=== PATIENT | male | born 1960 | race Caucasian/White ===

== ENCOUNTER 2017-06-24 13:42 | Inpatient (IN) | payer MEDICARE ==
[~2017-06-24] VITALS: Ht 172.7 cm; Wt 95.3 kg
[2017-06-24 14:58] LABS: BASOPHILS 0.1 % (0-2); EOSINOPHILS 0.1 % (0-7); HEMATOCRIT 40.6 % (42.0-54.0); HEMOGLOBIN 14.7 g/dL (13.5-17.5); IMMATURE GRANULOCYTES 0.4 % (0-5); LYMPHOCYTES 4.3 % (15-50); MCH 33.5 pg (26.0-34.0); MCHC 36.2 g/dL (31.0-37.0); MCV 92.5 fL (80.0-100.0); MEAN PLATELET VOLUME 9.4 fL (7.4-10.4); MONOCYTES 9.4 % (2-11); NEUTROPHILS 85.7 % (40-80); PLATELET COUNT 181 10x3/uL (130-400); RBC 4.39 10x6/uL (4.20-6.10); RDW 12.2 % (11.5-14.5); WBC 16.6 10x3/uL (4.8-10.8)
[2017-06-24 15:12] LABS: ANION GAP 16.3 mmol/L (8-16); BILIRUBIN - TOTAL 0.72 mg/dL (0.2-1.3); CALCIUM 8.8 mg/dL (8.5-10.1); CARBON DIOXIDE 22.8 mmol/L (21.0-32.0); CREATININE - SERUM 1.1 mg/dL (0.6-1.3); POTASSIUM - SERUM 4.1 mmol/L (3.5-5.1); PROTEIN - SERUM 7.9 g/dL (6.4-8.2)
[2017-06-24 15:26] LABS: APPEARANCE CLEAR (CLEAR); BILIRUBIN NEGATIVE (NEGATIVE); COLOR YELLOW (YELLOW); GLUCOSE NEGATIVE (NEGATIVE); KETONE NEGATIVE (NEGATIVE); NITRITE NEGATIVE (NEGATIVE); PROTEIN NEGATIVE (NEGATIVE); SPECIFIC GRAVITY 1.015 (1.005-1.020); UROBILINOGEN NORMAL (NORMAL)
[2017-06-24 15:46] LABS: AMYLASE - SERUM 43 U/L (25-115); LIPASE 86 U/L (73-393)
[2017-06-24 20:49] VITALS: BP 150/80
[2017-06-25 00:34] VITALS: BP 150/80; BMI 32.0
[2017-06-25] MEDS ORDERED: NORVASC10 MG PO (00:47)
[2017-06-25] MEDS ORDERED: ZESTRIL40 MG PO (00:47)
[2017-06-25] MEDS ORDERED: TERAZOSIN HCL2 MG PO (00:47)
[2017-06-25 04:00] VITALS: BP 109/66
[2017-06-25 05:48] LABS: BASOPHILS 0.1 % (0-2); EOSINOPHILS 0.3 % (0-7); HEMATOCRIT 36.2 % (42.0-54.0); HEMOGLOBIN 12.9 g/dL (13.5-17.5); IMMATURE GRANULOCYTES 0.2 % (0-5); LYMPHOCYTES 18.3 % (15-50); MCHC 35.6 g/dL (31.0-37.0); MCV 92.6 fL (80.0-100.0); MEAN PLATELET VOLUME 9.5 fL (7.4-10.4); MONOCYTES 11.3 % (2-11); NEUTROPHILS 69.8 % (40-80); PLATELET COUNT 169 10x3/uL (130-400); RBC 3.91 10x6/uL (4.20-6.10); RDW 12.4 % (11.5-14.5)
[2017-06-25 05:53] LABS: WBC 10.3 10x3/uL (4.8-10.8)
[2017-06-25 06:10] LABS: APTT 27.7 SECONDS (22.8-39.4); INR 1.05 (0.85-1.17); PROTIME 13.3 SECONDS (11.6-15.0)
[2017-06-25 06:23] LABS: ALBUMIN 3.2 g/dL (3.4-5.0); ALKALINE PHOSPHATASE 53 U/L (46-116); CALCIUM 8.6 mg/dL (8.5-10.1); CARBON DIOXIDE 25.3 mmol/L (21.0-32.0); CHLORIDE - SERUM 105 mmol/L (98-107); PROTEIN - SERUM 6.7 g/dL (6.4-8.2); SODIUM 140 mmol/L (136-145); eGFR NON AFRICAN AMERICAN 82 mL/min (90-120)
[2017-06-25 06:29] LABS: ALT (SGPT) 70 U/L (10-68); CALC OSMOLALITY 277 mosm/kg (275-300); GLUCOSE 97 mg/dL (74-106); UREA NITROGEN 10 mg/dL (7-18)
[2017-06-25 07:49] VITALS: BP 128/78
[2017-06-25 12:55] VITALS: BP 112/71
[2017-06-25 13:46] LABS: % SATURATION 17 % (15-55); IRON 54 ug/dl (35-150); TOTAL IRON BIND CAPACITY 314 ug/dl (260-445); UNSAT IRON BIND CAPACITY 260 ug/dl (150-375)
[2017-06-25 13:54] VITALS: Ht 172.7 cm; Wt 95.3 kg
[2017-06-25 16:27] VITALS: BP 148/82
[2017-06-25 22:06] VITALS: BP 167/90
[2017-06-26 05:03] VITALS: BP 139/91
[2017-06-26 06:29] LABS: BASOPHILS 0.1 % (0-2); EOSINOPHILS 0.4 % (0-7); HEMATOCRIT 36.4 % (42.0-54.0); HEMOGLOBIN 12.7 g/dL (13.5-17.5); IMMATURE GRANULOCYTES 0.3 % (0-5); LYMPHOCYTES 17.9 % (15-50); MCH 32.8 pg (26.0-34.0); MCHC 34.9 g/dL (31.0-37.0); MCV 94.1 fL (80.0-100.0); MEAN PLATELET VOLUME 9.3 fL (7.4-10.4); MONOCYTES 12.4 % (2-11); NEUTROPHILS 68.9 % (40-80); PLATELET COUNT 148 10x3/uL (130-400); RBC 3.87 10x6/uL (4.20-6.10); RDW 12.5 % (11.5-14.5); WBC 9.2 10x3/uL (4.8-10.8)
[2017-06-26 06:41] LABS: CALCIUM 8.5 mg/dL (8.5-10.1); CARBON DIOXIDE 28.5 mmol/L (21.0-32.0); CREATININE - SERUM 1.1 mg/dL (0.6-1.3); POTASSIUM - SERUM 4.5 mmol/L (3.5-5.1)
[2017-06-26 08:02] VITALS: BP 161/96
[2017-06-26 09:17] LABS: FOLATE (FOLIC ACID) - SERUM 16.3 ng/mL (>3.0)
[2017-06-26 12:00] VITALS: BP 149/88
[2017-06-26 16:35] VITALS: BP 138/86
[2017-06-26 20:30] VITALS: BP 146/77
[2017-06-27 00:52] VITALS: BP 148/78
[2017-06-27 03:58] VITALS: BP 133/77
[2017-06-27 04:36] LABS: BASOPHILS 0.1 % (0-2); EOSINOPHILS 1.8 % (0-7); HEMATOCRIT 38.9 % (42.0-54.0); HEMOGLOBIN 13.7 g/dL (13.5-17.5); IMMATURE GRANULOCYTES 0.3 % (0-5); LYMPHOCYTES 20.2 % (15-50); MCH 32.8 pg (26.0-34.0); MCHC 35.2 g/dL (31.0-37.0); MCV 93.1 fL (80.0-100.0); MEAN PLATELET VOLUME 9.4 fL (7.4-10.4); MONOCYTES 13.2 % (2-11); NEUTROPHILS 64.4 % (40-80); PLATELET COUNT 160 10x3/uL (130-400); RBC 4.18 10x6/uL (4.20-6.10); RDW 12.2 % (11.5-14.5); WBC 7.9 10x3/uL (4.8-10.8)
[2017-06-27 04:49] LABS: ANION GAP 12.6 mmol/L (8-16); CALCIUM 9.2 mg/dL (8.5-10.1); CARBON DIOXIDE 27.3 mmol/L (21.0-32.0); CREATININE - SERUM 1.1 mg/dL (0.6-1.3); POTASSIUM - SERUM 3.9 mmol/L (3.5-5.1)
[2017-06-27 08:29] VITALS: BP 153/88
[2017-06-27 12:51] VITALS: BP 147/79
[2017-06-27 15:51] VITALS: BP 138/90
[2017-06-27 20:38] VITALS: BP 136/76
[2017-06-28 04:38] VITALS: BP 144/82
[2017-06-28 05:14] LABS: BASOPHILS 0.3 % (0-2); EOSINOPHILS 2.9 % (0-7); HEMATOCRIT 36.9 % (42.0-54.0); HEMOGLOBIN 13.2 g/dL (13.5-17.5); IMMATURE GRANULOCYTES 0.4 % (0-5); LYMPHOCYTES 21.5 % (15-50); MCHC 35.8 g/dL (31.0-37.0); MCV 92.3 fL (80.0-100.0); MEAN PLATELET VOLUME 9.2 fL (7.4-10.4); MONOCYTES 12.5 % (2-11); NEUTROPHILS 62.4 % (40-80); PLATELET COUNT 174 10x3/uL (130-400); RDW 12.1 % (11.5-14.5)
[2017-06-28 05:36] LABS: ANION GAP 15.3 mmol/L (8-16); CALCIUM 8.9 mg/dL (8.5-10.1); CARBON DIOXIDE 23.7 mmol/L (21.0-32.0); CREATININE - SERUM 1.1 mg/dL (0.6-1.3)
[2017-06-28 08:09] VITALS: BP 142/79
[2017-06-28 12:07] VITALS: BP 146/83
[2017-06-28 16:01] VITALS: BP 149/90
[2017-06-28] MEDS ORDERED: LEVAQUIN500 MG PO (16:11)
[2017-06-28] MEDS ORDERED: FLAGYL500 MG PO (16:12)
[2017-06-28] MEDS ORDERED: NORCO 7.5/325 T1 TA1 PO (16:14)
== END 2017-06-28 17:40 | disposition home or self-care (01) | DRG 392 ==
LOC: D.ER 13:42 → D.EDHOLD 19:19 → D.MS 19:19 → D.SDCHOLD 06-25 08:49 → D.MS 06-25 08:50
PROVIDERS: Family Medicine; Internal Medicine Nephrology; Physician Assistant; Surgery
DX: K57.20 Diverticulitis of large intestine with perforation and abscess without bleeding (principal); F10.20 Alcohol dependence, uncomplicated; B19.20 Unspecified viral hepatitis C without hepatic coma; J43.9 Emphysema, unspecified; D64.9 Anemia, unspecified; I10 Essential (primary) hypertension; F32.9 Major depressive disorder, single episode, unspecified; F41.9 Anxiety disorder, unspecified

== ENCOUNTER → 2018-01-02 16:06 | Outpatient (CLI) | payer MEDICARE ==
[2017-06-25 13:54] VITALS: BMI 31.9
[~2018-01-02 16:06] MED LIST: FLAGYL500 MG PO; LEVAQUIN500 MG PO; NORCO 7.5/325 T1 TA1 PO; NORVASC10 MG PO; OXYCODONE-APAP1 TAB PO; TERAZOSIN HCL2 MG PO; VENTOLIN HFA18 GM INH; ZESTRIL40 MG PO
== END | disposition home or self-care (01) ==
LOC: D.LABREF 16:06
DX: M19.011 Primary osteoarthritis, right shoulder (principal); Z11.8 Encounter for screening for other infectious and parasitic diseases

== ENCOUNTER 2018-01-23 08:00 | Outpatient (CLI) | payer MEDICARE ==
[~2018-01-23 08:00] MED LIST changes: -OXYCODONE-APAP1 TAB PO; -VENTOLIN HFA18 GM INH
[2018-01-28 10:45] VITALS: BMI 28.7
== END 2018-01-23 08:01 | disposition home or self-care (01) ==
LOC: D.OPS 08:00
DX: M19.011 Primary osteoarthritis, right shoulder (principal); Z01.810 Encounter for preprocedural cardiovascular examination; Z01.811 Encounter for preprocedural respiratory examination; Z01.812 Encounter for preprocedural laboratory examination; Z53.9 Procedure and treatment not carried out, unspecified reason

== ENCOUNTER 2018-01-27 08:30 | Inpatient (IN) | payer MEDICARE ==
[2018-01-23 13:36] LABS: HEMATOCRIT 40.2 % (42.0-54.0); HEMOGLOBIN 14.6 g/dL (13.5-17.5); MCH 34.4 pg (26.0-34.0); MCHC 36.3 g/dL (31.0-37.0); MCV 94.8 fL (80.0-100.0); MEAN PLATELET VOLUME 9.4 fL (7.4-10.4); RBC 4.24 10x6/uL (4.20-6.10); RDW 12.4 % (11.5-14.5); WBC 7.2 10x3/uL (4.8-10.8)
[2018-01-23 13:53] LABS: APTT 22.5 SECONDS (22.8-39.4); INR 0.93 (0.85-1.17); PROTIME 12.1 SECONDS (11.6-15.0)
[2018-01-23 13:54] LABS: ALBUMIN 4.1 g/dL (3.4-5.0); ALKALINE PHOSPHATASE 53 U/L (46-116); ALT (SGPT) 61 U/L (10-68); BILIRUBIN - TOTAL 0.75 mg/dL (0.2-1.3); CALC OSMOLALITY 276 mosm/kg (275-300); CALCIUM 9.1 mg/dL (8.5-10.1); CARBON DIOXIDE 27.2 mmol/L (21.0-32.0); CHLORIDE - SERUM 103 mmol/L (98-107); CREATININE - SERUM 0.9 mg/dL (0.6-1.3); GLUCOSE 104 mg/dL (74-106); POTASSIUM - SERUM 4.7 mmol/L (3.5-5.1); PROTEIN - SERUM 7.3 g/dL (6.4-8.2); SODIUM 139 mmol/L (136-145); UREA NITROGEN 9 mg/dL (7-18); eGFR NON AFRICAN AMERICAN > 90 mL/min (90-120)
[~2018-01-27] VITALS: Ht 172.7 cm; Wt 85.7 kg
--- NOTE | ~2018-01-27 | MORECARE ---
CASE MANAGEMENT DISCHARGE SUMMARY PATIENT: REZA ENGLE UNIT: [id number] ADM DATE: 01/27/18 AGE: 57 : 58 SEX: M ROOM/BED: D.2209 AUTHOR: PATRICIA,DOC PHYSICIAN: REFERRING PHYSICIAN: MANSI GARCIA MD DATE OF SERVICE: 01/28/18 Discharge Plan Patient Name: REZA ENGLE Facility: [facility]:[place] : 1960 Planned Disposition: Home Anticipated Discharge Date: Discharge Date: Expected LOS: Initial Reviewer: [email or web address] Initial Review Date: 01/27/2018 Generated: 01/28/18 1:42 pm Comments DCP- Discharge Planning Updated by [email or web address]: Angela Torres on 01/28/18 11:[address] Patient Name: REZA ENGLE Admission Status: Elective Accout number: [id number] Admission Date: 01-27-2018 : 1960 Admission Diagnosis: Attending: MANSI GARCIA Current LOS: 1 Anticipated DC Date: Planned Disposition: Home Primary Insurance: [facility] [employer] Discharge Planning Comments: CM met with patient and to assess discharge planning needs. Patient stated that he is independent with his care at home. His will be the one to drive him home and his daughter will be the one staying with him while his is at work. Patient denies any DME / HH/ community resources at this time. CM will continue to follow and assist with DC planning as needed. Patient is requesting to be discharged today Criminalist Technician: Angela Torres DCPIA - Discharge Planning Initial Assessment Updated by [email or web address]: Angela Torres on 01/28/18 12:37 pm * Is the patient Alert and Oriented? Yes * How many steps to enter\exit or inside your home? * PCP [facility]ONTEMAYOR IN [facility] * Pharmacy [facility] [address] * Preadmission Environment Home with Family * ADLs Independent * Equipment None * List name and contact numbers for known caregivers / representatives who currently or will assist patient after discharge: [phone] () [phone] * Verbal permission to speak to the caregivers and representatives has been obtained from the patient. Yes * Community resources currently utilized None * Additional services required to return to the preadmission environment? No * Can the patient safely return to the preadmission environment? Yes * Has this patient been hospitalized within the prior 30 days at any hospital? No Patient Name: REZA ENGLE Page [phone] at 1242 All edits/amendments must be made on the electronic document DICTATION DATE: 01/28/181241 [employer] SUPERVISOR: BISHNU 01/28/18 1242 RPT#: [id number] DC DATE: STATUS: ADM IN [facility] [address] [place] [address] END OF REPORT
--- NOTE | ~2018-01-27 | OP ---
PATIENT NAME: REZA ENGLE MEDICAL RECORD: [id number] :58 LOCATION:D.MS [id number] ADMISSION DATE:01/27/18 SURGEON: MANSI GARCIA MD DATE OF OPERATION: 01/27/2018 PREOPERATIVE DIAGNOSIS: Severe arthritis of the right shoulder. POSTOPERATIVE DIAGNOSIS: Severe arthritis of the right shoulder. PROCEDURE: Right total shoulder arthroplasty. SURGEON: Mansi Garcia MD ANESTHESIA: General. INTRAOPERATIVE COMPLICATIONS: None. SUMMARY OF PATHOLOGIC FINDINGS: Extremely bad osteoarthritis with essentially square on square at the glenohumeral joint. IMPLANTS USED: Ar[employer] total shoulder system with a size #12 stem, size 54 x 21 humeral head, and a size large Univers VaultLock cemented glenoid. OPERATIVE SUMMARY IN DETAIL: After obtaining the appropriate preoperative orthopedic surgery consent as well as anesthetic consultation, evaluation, and clearance, the patient was brought to the operating room and placed on the operating table in the supine position. After general laryngeal mask was administered, the patient was placed in the beachchair position. All pressure points were well padded. Right upper extremity and shoulder were then prepped and draped in routine sterile fashion. Arm was held in Trimano arm holding device. Deltopectoral incision was taken down. Cephalic vein was found and protected. Deltoid was gently retracted laterally using the Nobles retractor. Conjoined tendon was gently retracted medially. The subscapularis was taken in a peel down fashion from the shoulder. The glenohumeral joint was then dislocated into the wound. Multiple osteophytes were removed both inferiorly and posteriorly as well as laterally. Humeral head cut was made using the humeral head cutting guide for the Univers system. Several sequential reaming and broaching were done for the proximal humerus. The trial was put into place and the cut cover was placed over the trial while the glenoid was approached. Circumferential labrectomy was then followed by reaming. Slight anteversion was added to this Hughes C type deformity for a good solid glenoid base. Final glenoid components were made followed by irrigation with epinephrine laden water. This was then dried and the glenoid was cemented into place. Having completed this, attention was returned to the proximal humerus. Final stem was put into place along with tamping the glenosphere onto the Light taper. Shoulder was reduced and had approximately one-third to one-half translation. At this point, the wound was copiously irrigated. The subscapularis was reapproximated to the lesser tuberosity in transosseous fashion using #2 Ethibond. Lastly, the deltopectoral incision was closed with #1 Vicryl followed by 2-0 Vicryl followed by skin antoinette. Sterile dressings were applied. The patient was awakened and taken to the recovery room in stable condition. All final needle and sponge counts were correct. TRANSINT:[id number] Voice Confirmation ID: [id number] DOCUMENT ID: [id number] OPERATIVE REPORT [id number] REZA ENGLE MD, MANSI TAPIA CC: [id number] DICTATION DATE: 01/28/181712 MEMBER SERVICES REPRESENTATIVE: 01/28/181916 DIS IN 01/28/18 [facility] [address] [place] [address]
[2018-01-27] MEDS ORDERED: VENTOLIN HFA18 GM INH (09:12)
[2018-01-27 09:16] VITALS: BP 109/71; BMI 28.9
[2018-01-27 14:54] VITALS: BP 116/75; BMI 28.8
[2018-01-27 21:47] VITALS: BP 118/74
[2018-01-28 00:20] VITALS: BP 114/72
[2018-01-28 05:43] VITALS: BP 127/72
[2018-01-28 08:30] VITALS: BP 153/88
[2018-01-28 10:45] VITALS: Ht 172.7 cm; Wt 85.7 kg
[2018-01-28] MEDS ORDERED: OXYCODONE-APAP1 TAB PO (12:08)
[2018-01-28 12:34] VITALS: BP 140/79
== END 2018-01-28 15:39 | disposition home or self-care (01) | DRG 483 ==
LOC: D.MS 08:30 → D.SDCHOLD 08:30 → D.MS 14:10
PROVIDERS: Anesthesiology; Orthopaedic Surgery
PROC: 0RRJ0JZ Replacement of Right Shoulder Joint with Synthetic Substitute, Open Approach (ICD-10-PCS; principal; 2018-01-27 10:30)
DX: M19.011 Primary osteoarthritis, right shoulder (principal); I10 Essential (primary) hypertension; J43.9 Emphysema, unspecified; J40 Bronchitis, not specified as acute or chronic; Z87.891 Personal history of nicotine dependence